=== PATIENT | female | born 1990 | race Caucasian/White ===

== ENCOUNTER 2017-05-23 00:33 | Inpatient (IN) | payer MEDICAID ==
[2017-05-23] VITALS (40 sets, daily range): BP systolic 98–133; BP diastolic 53–78; PULSE 69–127; TEMP 97.8–98.5
[~2017-05-23] VITALS: Ht 157.5 cm; Wt 66.8 kg
[~2017-05-23 00:33] MED LIST: PHENERGAN 25 TA25 MG PO; PHENERGAN25 MG RC; PRENATAL1 TA1 PO; orthotricycline
[2017-05-23 03:15] LABS: HEMOGLOBIN 12.3 g/dl (12.5-16.0); MEAN CELL VOLUME 77 fl (80.0-100.0); MEAN CORPUSCULAR HEMOGLOBIN 26 pg (27.0-31.0); MEAN CORPUSCULAR HGB CONC 34 g/dl (33.0-37.0); MEAN PLATELET VOLUME 11.6 fl (7.4-10.4); PLATELET COUNT 267 K/mm3 (130-400); RED BLOOD COUNT 4.74 M/mm3 (4.10-5.30); REDCELL DISTRIBUTION WIDTH-CV 14.1 % (11.5-14.5)
[2017-05-23 03:16] LABS: HEMATOCRIT 36.7 % (37.0-47.0)
[2017-05-23 03:30] LABS: ANISOCYTOSIS 1+; BAND 4 % (0-10); BASOPHIL 2 % (0-2); EOSINOPHIL 2 % (0-4); LYMPHOCYTE 14 % (20.0-51.0); NEUTROPHILS 72 % (42.0-75.2); POIKILOCYTOSIS 1+; ROULEAUX 1+
[2017-05-24 08:21] VITALS: BP 120/73; PULSE 82; TEMP 98.1
[2017-05-24] MEDS ORDERED: PERCOCET 325 MG1 TA2 PO (08:45)
[2017-05-24] MEDS ORDERED: MOTRIN 600600 MG/TAB PO (08:45)
== END 2017-05-24 13:10 | disposition home or self-care (01) | DRG 775 ==
LOC: LDRO 00:33 → LDR 00:34 → OB 13:00 → LDRO 06-08 06:11
PROVIDERS: Obstetrics & Gynecology
PROC: 10E0XZZ Delivery of Products of Conception, External Approach (ICD-10-PCS; principal; 2017-05-23)
PROC: 0W8NXZZ Division of Female Perineum, External Approach (ICD-10-PCS; 2017-05-23)
DX: O99.334 Smoking (tobacco) complicating childbirth (principal); F17.210 Nicotine dependence, cigarettes, uncomplicated; Z3A.37 37 weeks gestation of pregnancy; Z37.0 Single live birth
CPT/HCPCS: J2590; J7120

== ENCOUNTER 2018-06-25 15:28 | Emergency (ER) | payer MEDICAID ==
[~2018-06-25] VITALS: Ht 160 cm; Wt 50.5 kg
[~2018-06-25 15:28] MED LIST changes: +MOTRIN 600600 MG/TAB PO; +PERCOCET 325 MG1 TA2 PO
[2018-06-25 15:35] VITALS: TEMP 98.6
[2018-06-25] MEDS ORDERED: CEPHALEXIN500 M1 PO (16:28)
[2018-06-25 17:32] VITALS: BP 112/66; PULSE 86
== END 2018-06-25 17:37 | disposition home or self-care (01) ==
LOC: COL.ER 15:28
DX: S91.312A Laceration without foreign body, left foot, initial encounter (principal); S00.432A Contusion of left ear, initial encounter; F17.210 Nicotine dependence, cigarettes, uncomplicated; W01.190A Fall on same level from slipping, tripping and stumbling with subsequent striking against furniture, initial encounter; Y92.009 Unspecified place in unspecified non-institutional (private) residence as the place of occurrence of the external cause